=== PATIENT | female | born 1970 | race African-American/Black ===

== ENCOUNTER 2024-03-20 01:00 | Emergency (ER) | payer OTHER ==
[~2024-03-20] VITALS: Ht 162.6 cm; Wt 125.2 kg
[2024-03-20 01:05] VITALS: PULSE 83; RESP 18; TEMP 97.9
[2024-03-20 01:38] VITALS: BP 179/96; PULSE 80; RESP 18; TEMP 97.9; O2SAT 96
== END 2024-03-20 01:38 | disposition home or self-care (01) ==
LOC: FSED 01:08
DX: I10 Essential (primary) hypertension (principal); K05.10 Chronic gingivitis, plaque induced
CPT/HCPCS: 99282

== ENCOUNTER 2024-04-09 11:35 | Emergency (ER) | payer SELFPAY ==
[~2024-04-09] VITALS: Ht 162.6 cm; Wt 122.6 kg
[2024-04-09] MEDS ORDERED: ZESTRIL20 MG PO (12:25)
[2024-04-09] MEDS ORDERED: METOPROLOL SUCC25 MG PO (12:25)
[2024-04-09] MEDS ORDERED: HYDROCHLOROTHIA25 MG PO (12:25)
[2024-04-09] MEDS: SODIUM CHLORIDE 0.9% 1000ML 1,000 ML IV SCH (12:55)
[2024-04-09] MEDS: KETOROLAC TROMETHAMINE 30 MG/ML VIAL IV STA (12:55)
[2024-04-09 15:18] VITALS: PULSE 54; RESP 18; TEMP 98.6; O2SAT 97
[2024-04-09] MEDS ORDERED: BACLOFEN10 MG PO (15:31)
[2024-04-09] MEDS ORDERED: KETOROLAC TROME10 MG PO (15:31)
== END 2024-04-09 15:53 | disposition home or self-care (01) ==
LOC: FSED 11:54
DX: R10.11 Right upper quadrant pain (principal); S39.012A Strain of muscle, fascia and tendon of lower back, initial encounter; R16.0 Hepatomegaly, not elsewhere classified; K76.0 Fatty (change of) liver, not elsewhere classified; M77.32 Calcaneal spur, left foot; M77.31 Calcaneal spur, right foot; M79.672 Pain in left foot; M79.671 Pain in right foot
CPT/HCPCS: 73620 ×2; 74176; 76705; 80048; 80076; 81003; 81025; 85025; 96374; 99284; J1885; J7030

== ENCOUNTER 2024-07-20 12:18 | Emergency (ER) | payer OTHER ==
[~2024-07-20] VITALS: Ht 162.6 cm; Wt 122.5 kg
[~2024-07-20 12:18] MED LIST: BACLOFEN10 MG PO; HYDROCHLOROTHIA25 MG PO; KETOROLAC TROME10 MG PO; METOPROLOL SUCC25 MG PO; ZESTRIL20 MG PO
[2024-07-20] MEDS: SODIUM CHLORIDE 0.9% 1000ML 1,000 ML IV SCH (13:28)
[2024-07-20] MEDS ORDERED: ONDANSETRON ODT4 MG PO (14:26)
[2024-07-20] MEDS ORDERED: LIDOCAINE VISC 2% SOLN 15 ML UDC ONE (14:37)
[2024-07-20] MEDS ORDERED: MAGNESIUM/ALUMINUM/SIMETHICONE 30 ML UDC ONE (14:37)
[2024-07-20] MEDS ORDERED: BELLADONNA ALK/PHENOBARBITAL 5 ML UDC ONE (14:37)
[2024-07-20 15:37] VITALS: PULSE 87; RESP 18; TEMP 98.2; O2SAT 98
[2024-07-20] MEDS: DONNATAL/LIDOCAINE/MAALOX 30 ML SUSP PO ONE (15:41)
== END 2024-07-20 15:37 | disposition home or self-care (01) ==
LOC: FSED 12:29
DX: R10.11 Right upper quadrant pain (principal); E86.0 Dehydration; E66.01 Morbid (severe) obesity due to excess calories; I10 Essential (primary) hypertension; R73.03 Prediabetes
CPT/HCPCS: 74176; 76705; 80053; 81003; 85025; 93005; 99284; J7030

== ENCOUNTER 2024-11-01 14:34 | Emergency (ER) | payer OTHER ==
[~2024-11-01] VITALS: Ht 162.6 cm; Wt 124.9 kg
[~2024-11-01 14:34] MED LIST changes: +ONDANSETRON ODT4 MG PO
[2024-11-01 14:36] VITALS: RESP 18; TEMP 98.3; O2SAT 100
[2024-11-01 16:23] VITALS: PULSE 79
== END 2024-11-01 16:35 | disposition home or self-care (01) ==
LOC: FSED 15:09
DX: I10 Essential (primary) hypertension (principal); R73.03 Prediabetes; F41.9 Anxiety disorder, unspecified
CPT/HCPCS: 80053; 80076; 81003; 84484; 85025; 93005; 99284